=== PATIENT | female | born 1955 | race Caucasian/White ===

== ENCOUNTER 2021-12-10 09:22 | Outpatient (CLI) | payer MEDICARE, BC, SELFPAY ==
[2021-12-10 14:13] LABS: Basophils Percent Auto 0.9 % (0.0-3.0); Eosinophils Percent Auto 7.3 % (0.0-7.0); Hematocrit 44.1 % (33.0-51.0); Hemoglobin* 14.4 gm/dL (12.0-16.0); Lymphocytes Percent Auto 38.1 % (20-44); Mean Corpuscular HGB Conc 33 gm/dL (32-36); Mean Corpuscular Hemoglobin 32 pg (26-34); Mean Corpuscular Volume 98 fL (80-100); Monocytes Percent Auto 9.1 % (0.0-11.0); Neutrophils Percent Auto 44.6 % (42.0-72.0); Platelet Count* 236 K/uL (140-440); RDW Coefficient of Variation % 12.1 % (11.5-15.5); White Blood Count* 3.41 K/uL (4.50-11.00)
[2021-12-10 14:17] LABS: Slide Review Reflex No
[2021-12-10 14:24] LABS: Cholesterol* 232 mg/dL (90-199); Glucose* 94 mg/dL (60-115); Triglycerides* 68 mg/dL (40-149)
[2021-12-10 14:25] LABS: HDL Cholesterol* 83 mg/dL (>=50); LDL Cholesterol Calculated 135 mg/dL (<100)
== END 2021-12-10 09:23 | disposition home or self-care (01) ==
LOC: FBOREF 09:22
PROVIDERS: PCP Family Medicine; Visit Provider Nurse Practitioner Family
DX: Z00.00 Encounter for general adult medical examination without abnormal findings (principal); Z13.0 Encounter for screening for diseases of the blood and blood-forming organs and certain disorders involving the immune mechanism; Z13.1 Encounter for screening for diabetes mellitus; Z13.6 Encounter for screening for cardiovascular disorders
CPT/HCPCS: 80061; 82947; 85025

== ENCOUNTER 2021-12-12 14:52 | Outpatient (CLI) | payer MEDICARE, BC, SELFPAY ==
--- NOTE | 2021-12-12 15:00 | CRLHL7_ITS ---
For Patients: As a result of the Century Cures Act, medical imaging exams and procedure reports are released immediately into your electronic medical record. You may view this report before your referring provider. If you have questions, please contact your health care provider. DXA BONE MINERAL DENSITY STUDY Reason for exam: Screening. Current height (in): 69. Weight (lb): 143. Menopause age: 50. Ethnicity: White. 1. Have you had a previous hip or vertebral fracture? No. 2. Have you had any fractures during your adult life which did not result from significant trauma (e.g., auto accident)? No. 3. Did either of your parents have a hip fracture? No. 4. Do you smoke? No. 5. Have you ever taken Glucocorticoids? No. 6. Do you have rheumatoid arthritis? No. 7. Do you have secondary osteoporosis? No. 8. Do you drink 3 or more alcoholic drinks per day? No. 9. Are you being treated for osteoporosis? No. 10. Have you ever taken any of the following medications: Actonel, Evista, Fosamax, Miacalcin, Reclast, Boniva, Forteo, HRT (i.e., estrogen/hormone therapy), Protelos, Prolia, Vitamin D, Calcium, other ??? please specify. ANSWER: Yes, vitamin D and calcium. 11. Do you have any of the following medical conditions: Anorexia or bulimia, asthma or emphysema, end stage renal disease, hyperparathyroidism, any seizure disorders, cancer, inflammatory bowel diseases, hysterectomy, other ??? please specify. ANSWER: Yes, osteoarthritis. 12. What was your maximum height (inches)? 69. 13. Do you perform weight bearing exercise regularly? Yes. 14. Do you regularly consume dairy products? Yes. 15. Do you drink caffeinated beverages? Yes. If female: 16. At what age did your period start? 13. 17. Are you premenopausal? No. 18. How many full-term pregnancies have you had? 0. 19. Have you ever missed your period for more than 6 months in a row (not including or menopause)? No. TECHNIQUE: Bone mineral density study was performed using the [employer]. FINDINGS: The results of the study expressed as bone mineral density (BMD) are as follows: Lumbar spine L1 to L4: BMD: 0.815 g/cm2. T-score: -2.1. Z-score: -0.2 Neck Left: BMD: 0.651 g/cm2. T-score: -1.8. Z-score: -0.2 Right: BMD: 0.773 g/cm2. T-score: -0.7. Z-score: 0.9 Total Left: BMD: 0.662 g/cm2. T-score: -2.3. Z-score: -1.0 Right: BMD: 0.780 g/cm2. T-score: -1.3. Z-score: 0.0 IMPRESSION: Osteopenia. FRAX 10-year Fracture Risk Major Osteoporotic Fracture: 9.0% Hip Fracture: 1.3% Reported Risk Factors: [place] () Neck BMD=0.651, BMI=21.1 Stephen Gomez M.D. Diagnostic Radiologist [email or web address] KEYA/bud farrell/Dictated by: Stephen Gomez MD @ 12/13/2021 8:19:00 AM (Electronically Signed)
== END 2021-12-12 14:53 | disposition home or self-care (01) ==
LOC: RAD 14:53
PROVIDERS: PCP Nurse Practitioner Family; Visit Provider Nurse Practitioner Family
DX: Z13.820 Encounter for screening for osteoporosis (principal); M85.89 Other specified disorders of bone density and structure, multiple sites; Z78.0 Asymptomatic menopausal state
CPT/HCPCS: 77080

== ENCOUNTER 2022-05-02 12:52 | Outpatient (CLI) | payer MEDICARE, BC, SELFPAY ==
--- NOTE | 2022-05-02 13:00 | CRLHL7_ITS ---
For Patients: As a result of the Century Cures Act, medical imaging exams and procedure reports are released immediately into your electronic medical record. You may view this report before your referring provider. If you have questions, please contact your health care provider. BILATERAL SCREENING MAMMOGRAM WITH COMPUTER-AIDED DETECTION AND TOMOSYNTHESIS TECHNIQUE: CC and MLO views were obtained. These mammographic images have been obtained using full-field digital technique. These mammographic images were interpreted with the benefit of computer-aided detection. Breast Tomosynthesis was used in this interpretation. COMPARISON FILM: 05/01/21, 04/30/20, 04/12/19. FINDINGS: The breasts are heterogeneously dense, which may obscure small masses IMPRESSION: There is no radiographic evidence for malignancy. ASSESSMENT: BI-RADS Category 1: Negative RECOMMENDATION: Routine screening mammogram in 1 year. A lay language report of this examination will be provided to the patient. Laine Conway M.D. Diagnostic/Breast Radiologist [email or web address] HARDY/Dictated by: Laine Conway MD @ 05/05/2022 8:19:00 AM (Electronically Signed)
== END 2022-05-02 12:53 | disposition home or self-care (01) ==
LOC: MAMMO 12:54
PROVIDERS: PCP Nurse Practitioner Family; Visit Provider Nurse Practitioner Family
DX: Z12.31 Encounter for screening mammogram for malignant neoplasm of breast (principal); R92.2 Inconclusive mammogram
CPT/HCPCS: 77063; 77067

== ENCOUNTER 2022-05-28 08:40 | Outpatient (CLI) | payer MEDICARE, BC, SELFPAY | END 2022-05-28 08:41 | disposition home or self-care (01) | LOC: NFLDREF 05-30 15:33 | PROVIDERS: PCP Nurse Practitioner Family; Referring Provider Nurse Practitioner Family; Visit Provider Nurse Practitioner Family | DX: D72.819 Decreased white blood cell count, unspecified (principal) | CPT/HCPCS: 85025 ==

== ENCOUNTER 2022-12-09 15:03 | Outpatient (CLI) | payer MEDICARE, BC, SELFPAY | END 2022-12-09 15:04 | disposition home or self-care (01) | PROVIDERS: PCP Nurse Practitioner Family; Visit Provider Nurse Practitioner Family | DX: Z00.00 Encounter for general adult medical examination without abnormal findings (principal); Z13.1 Encounter for screening for diabetes mellitus; Z13.6 Encounter for screening for cardiovascular disorders; Z78.0 Asymptomatic menopausal state; Z83.2 Family history of diseases of the blood and blood-forming organs and certain disorders involving the immune mechanism | CPT/HCPCS: 80061; 85025 ==

== ENCOUNTER 2023-05-04 12:30 | Outpatient (CLI) | payer MEDICARE, SELFPAY ==
--- NOTE | 2023-05-04 13:00 | MM_ITS ---
Patient: LUIS ALBERTO RICHARD Facility:?[facility] Patient ID:?[id number] Site Patient ID:?[id number]. Site :?[id number] Study:?XRay-Breast Bilateral 3D W/CAD-05/04/2023 12:53:55 PM Ordering Physician:?Lindsay Israel Final Report: BILATERAL SCREENING MAMMOGRAM WITH COMPUTER-AIDED DETECTION AND TOMOSYNTHESIS TECHNIQUE: CC and MLO views were obtained. These mammographic images have been obtained using full-field digital technique. These mammographic images were interpreted with the benefit of computer-aided detection. Breast tomosynthesis was used in this interpretation. COMPARISON FILM: 05/02/22, 05/01/21, 04/30/20. FINDINGS: The breasts are heterogeneously dense, which may obscure small masses. IMPRESSION: There is no radiographic evidence for malignancy. ASSESSMENT: BI-RADS Category 1: Negative RECOMMENDATION: Routine screening mammogram in 1 year. A lay language report of this examination will be provided to the patient. JUAN PABLO WAKEFIELD M.D. Diagnostic Radiologist [email or web address] KEYA/amber D& Transcribed: 6:[address]/Dictated by: Juan Pablo Wakefield MD @ 05/14/2023 12:24:00 PM Signed by:Dora Wakefield MD @05/14/2023 8:24:23 PM (Electronic Signature)
== END 2023-05-04 12:31 | disposition home or self-care (01) ==
LOC: MAMMO 12:31
PROVIDERS: PCP Nurse Practitioner Family; Visit Provider Nurse Practitioner Family
DX: Z12.31 Encounter for screening mammogram for malignant neoplasm of breast (principal); R92.2 Inconclusive mammogram
CPT/HCPCS: 77063; 77067

== ENCOUNTER 2023-09-23 07:55 | Emergency (ER) | payer MEDICARE, SELFPAY ==
[2023-09-23] VITALS (8 sets, daily range): BP systolic 129–130; BP diastolic 83–91; PULSE 59–95; RESP 18; TEMP 36.2; O2SAT 94–100; BMI 21.4
--- NOTE | 2023-09-23 08:34 | CRLHL7_ITS ---
For Patients: As a result of the Century Cures Act, medical imaging exams and procedure reports are released immediately into your electronic medical record. You may view this report before your referring provider. If you have questions, please contact your health care provider. INDICATION: COVID +, NAUSEA, DIFFUSE ABD PAIN. TECHNIQUE: CT abdomen and pelvis acquired with 71 cc Omnipaque 350 IV contrast. COMPARISON: None. FINDINGS: Lower chest: Fine detail evaluation of the lung parenchyma is limited by respiratory motion artifact. Bibasilar subsegmental atelectasis. Liver: Unremarkable. Normal in size and attenuation. No suspicious masses. Gallbladder and bile ducts: Unremarkable. No stones or inflammation. No biliary dilatation. Pancreas: Unremarkable. No mass or inflammation. Spleen: Unremarkable. Normal in size. No masses. Adrenal glands: Unremarkable. No nodules. Kidneys: Unremarkable. No suspicious masses, stones, or hydronephrosis. GI tract: Rectosigmoid bowel suture line. There is diverticulosis of the residual sigmoid colon and left hemicolon without evidence of acute diverticulitis. No evidence of a bowel obstruction. Vasculature: Abdominal aorta is relatively tortuous in the upper-mid abdomen, but is normal in caliber. Mesenteric arteries are patent. Lymph nodes: No lymphadenopathy. Peritoneum/Abdominal Wall: Small volume pelvic free fluid Pelvis: Unremarkable. Bones: Unremarkable for age. IMPRESSION: No evident acute abnormalities in the abdomen or pelvis. Please note that all CT scans at this facility use dose modulation, iterative reconstruction, and/or weight-based dosing when appropriate to reduce radiation dose to as low as reasonably achievable. Dictated by Faustino Brooks MD @ 09/23/2023 10:34:53 AM (Electronically Signed)
--- NOTE | 2023-09-23 08:36 | ED_ITS ---
HPI - General Adult General Date Seen: 09/23/23 Chief complaint: Dizziness/Vertigo Stated complaint: Dizzy, vomiting Time Seen by Provider: 09/23/23 07:57 Source: patient Mode of arrival: ambulatory Limitations: no limitations History of Present Illness HPI narrative: Patient is a 68-year-old female presenting to emergency department for nausea, vomiting, dizziness. She states she was on a cruise then returned on Thursday and she was feeling sick starting Thursday but then started having the worsening nausea and dizziness yesterday morning when she woke up. States all day she was having nausea and would feel dizzy whenever she gets up to move around. States her head feels off but has a hard time describing it. She has tried sublingual Zofran at home without improvement in her symptoms. The states she has had symptoms like this in the past when her diverticulitis would act up this not had any size similar symptoms since her sigmoidectomy about 6 or 7 years ago. Is not aware of anyone else that was sick that she went on the trip with does note 1 the ladies they met on the cruise was feeling under the weather on the final day. She denies fevers, chills, headache, vision changes, days chest pain, shortness of breath, abdominal pain, diarrhea, constipation, dysuria. She states her whole body feels weak and fatigued. Has not had much p.o. intake in the past day. Symptoms are not improving so she came to be evaluated. Related Data Home Medications ?Medication ?Instructions ?Recorded ?Confirmed calcium citrate 200 mg 1 tab PO DAILY 11/14/21 07/21/23 calcium-vitamin D3 3.125 mcg (125 unit) tablet olopatadine 0.2 % eye drops 1 drp ophthalmic (eye) .Daily as 11/14/21 07/21/23 needed PRN omega-3 fatty acids 1,000 mg 1,000 mg PO QDAY 11/14/21 07/21/23 capsule polyethylene glycol 3350 17 g PO DAILY 11/14/21 07/21/23 gram/dose oral powder ondansetron HCl 4 mg tablet 4 mg PO PRN 12/05/21 07/21/23 red yeast rice 600 mg capsule 1,800 mg PO DAILY 12/09/22 07/21/23 coenzyme Q10 100 mg capsule 100 mg PO DAILY 07/21/23 07/21/23 fluticasone propionate 50 2 spray intranasal QDAY 07/21/23 07/21/23 mcg/actuation nasal spray,suspension (Flonase Allergy Relief) Allergies Allergy/AdvReac Type Severity Reaction Status Date / Time ciprofloxacin Allergy Verified 09/23/23 10:19 oxycodone Allergy Verified 09/23/23 10:19 Penicillins Allergy Verified 09/23/23 10:19 propoxyphene Allergy Verified 09/23/23 10:19 Review of Systems Status of ROS: Reports: 10 or more systems reviewed and unremarkable except as noted in History and below [facility] Medical History Postmenopausal status (10/25/10) ?Z78.0 - Asymptomatic menopausal state (ICD-10) History of diverticulitis ?Z87.19 - Personal history of other diseases of the digestive system (ICD-10) History of colonic polyps (10/05/13) ?Z86.010 - Personal history of colonic polyps (ICD-10) Surgical History History of D&C ?Z98.890 - Other specified postprocedural states (ICD-10) Status post tonsillectomy ?Z90.89 - Acquired absence of other organs (ICD-10) 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 Alcohol, socially. Non-smoker. No illicit drug use. Exercise formally. What is your current living situation?: I presently have a place to live Problems where you live: no known problems In the past 12 months, utilities in danger of being shut off: no In past 12 months, lack of transportation kept you from medical appts, meetings, work, or getting things needed for daily living: no In the past 12 mos, have been you worried that your food would run out before you had money to buy more?: never true In the past 12 mos, the food you bought just didn't last and you didn't have money to buy more?: never true Smoking Status: Never smoker How often does anyone, including family, friends and others, physically hurt you : never How often does anyone, including family, friends and others, insult or talk down to you: never How often does anyone, including family, friends and others, threaten you with harm: never How often does anyone, including family, friends and others, scream or curse at you: never Little interest or pleasure in doing things: not at all Feeling down, depressed, or hopeless: not at all Exam Narrative: Exam Narrative: Const: Well-nourished, Well-developed, in moderate distress Eyes: PERRL, no conjunctival injection, and symmetrical lids HENT: Atraumatic external nose and ears. Moist mucous membranes. Neck: Symmetric, trachea midline, No thyromegaly. CVS: RRR, No murmurs or gallops. Peripheral pulses 2+ and equal in all extremities RESP: Unlabored respiratory effort. Clear to auscultation bilaterally. GI: Nontender/Nondistended, No rebound or guarding. MSK:Extremities w/o deformity, Normal Active ROM Skin: Warm, Dry. No rashes or lesions. Neuro: Normal Muscle tone, No focal neurological deficits. Psych: Awake, Alert, & Oriented x3. Appropriate mood and affect. Const: Vital Signs, click to edit/add: Vital Signs - 24 hr 09/23/23 08:21 09/23/23 08:27 09/23/23 08:30 Temperature 97.1 F L Pulse Rate 68 71 Pulse Rate [Pulse Oximeter] 69 Respiratory Rate 18 Blood Pressure Blood Pressure [Ri ght Upper Arm] 129/83 Pulse Oximetry 98 94 98 Oxygen Delivery Me thod Room Air 09/23/23 08:45 09/23/23 09:00 09/23/23 09:09 Temperature Pulse Rate 59 L 67 95 Pulse Rate [Pulse Oximeter] Respiratory Rate Blood Pressure 130/91 H Blood Pressure [Ri ght Upper Arm] Pulse Oximetry 98 98 99 Oxygen Delivery Me thod 09/23/23 09:15 09/23/23 09:30 Temperature Pulse Rate 83 75 Pulse Rate [Pulse Oximeter] Respiratory Rate Blood Pressure Blood Pressure [Ri ght Upper Arm] Pulse Oximetry 100 98 Oxygen Delivery Me thod Course Vital Signs Vital signs: Initial Vital Signs Temperature 97.1 F L 09/23/23 08:21 Temperature Source Temporal Artery Scan 09/23/23 08:21 Pulse Rate 69 09/23/23 08:21 Respiratory Rate 18 09/23/23 08:21 Blood Pressure 129/83 09/23/23 08:21 Blood Pressure Mean 98 09/23/23 08:21 Pulse Oximetry 98 09/23/23 08:21 Oxygen Delivery Method Room Air 09/23/23 08:21 Vital Signs Temperature 97.1 F L 09/23/23 08:21 Pulse Rate 69 09/23/23 08:21 Respiratory Rate 18 09/23/23 08:21 Blood Pressure 129/83 09/23/23 08:21 Pulse Oximetry 98 09/23/23 08:21 Oxygen Delivery Method Room Air 09/23/23 08:21 Temperature 97.1 F L 09/23/23 08:21 Pulse Rate 75 09/23/23 09:30 Respiratory Rate 18 09/23/23 08:21 Blood Pressure 130/91 H 09/23/23 09:09 Pulse Oximetry 98 09/23/23 09:30 Oxygen Delivery Method Room Air 09/23/23 08:21 Medications Administered Medications: Discontinued Medications Generic Name Dose Route Start Last Admin Trade Name Freq PRN Reason Stop Dose Admin Diphenhydramine HCl 25 mg 09/23/23 08:34 09/23/23 09:15 Diphenhydramine 50 Mg/Ml Inj IVP 09/23/23 08:35 25 mg ONCE ONE Administration Lactated Ringer's 1,000 mls @ 1,000 mls/hr 09/23/23 08:34 09/23/23 09:15 Lactated Ringers 1000 Ml IV 09/23/23 09:33 1,000 mls/hr .Q1H ONE Administration Metoclopramide HCl 10 mg 09/23/23 08:34 09/23/23 09:15 Metoclopramide Hcl 5 Mg/Ml Inj IVP 09/23/23 08:35 10 mg ONCE ONE Administration Medical Decision Making MDM Narrative Medical decision making narrative: Patient is a 68-year-old female presenting for nausea, vomiting, dizziness. The differential diagnosis of vertigo is broad and includes common etiologies such as menieres disease, labyrinthitis, benign positional vertigo, otitis media, etc. More serious etiologies considered include central etiologies such as tumor, intracerebral bleed, dissection, ischemic cerebral vascular accident. Considering symptoms recur with movement this seems most likely did to be a peripheral cause the dizziness could also be some dehydration related as she has been vomiting has low p.o. intake. The nausea and vomiting could be from a gastroenteritis but consider history will do CT scan to look for any other causes. Differential includes SBO, his pancreatitis, gallbladder disease. Lactated Ringer's given for dehydration along with Reglan and Benadryl for her nausea. CBC, CMP, COVID/flu/RSV, urinalysis, lipase all ordered. She is COVID positive and this is likely the cause of all of her symptoms. Her white blood cell count is slightly low at 3.32 which is consistent with her viral infection. Rest of CBC, CMP, urinalysis showed no concerning abnormalities. CT scan the abdomen pelvis reviewed by myself and the radiologist shows no concerning findings. The symptoms are improved with the Reglan. She is comfortable at this time for discharge. She is out of the window for Paxlovid. Will be discharged. She prefers the Reglan pill over Zofran oral disintegrating at this time. Lab Data Labs: Lab Results 09/23/23 09/23/23 Range/Units 09:09 10:22 WBC 3.32 L (4.50-11.00) K/uL RBC 4.41 (4.00-5.20) m/uL Hgb 13.7 (12.0-16.0) gm/dL Hct 42.4 (33.0-51.0) % MCV 96 (80-100) fL MCH 31 (26-34) pg MCHC 32 (32-36) gm/dL RDW Coeff of Elissa 12.2 (11.5-15.5) % Plt Count 150 (140-440) K/uL Neut % (Auto) 66.3 (42.0-72.0) % Lymph % (Auto) 25.0 (20-44) % [place] % (Auto) 7.2 (0.0-11.0) % Eos % (Auto) 1.5 (0.0-7.0) % Baso % (Auto) 0.0 (0.0-3.0) % Neut # (Auto) 2.20 (1.7-7.0) K/uL Lymph # (Auto) 0.80 L (0.90-2.90) K/uL [place] # (Auto) 0.20 (0.00-0.90) K/UL Eos # (Auto) 0.00 (0.00-0.50) K/uL Baso # (Auto) 0.00 (0.00-0.30) K/uL Abs Immat Gran (auto) 0.00 (0.00-0.30) K/uL Imm/Tot Granulo (auto) 0.0 % Sodium 140 (135-149) mmol/L Potassium 3.6 (3.6-5.1) mmol/L Chloride 104 (96-114) mmol/L Carbon Dioxide 29 (20-32) mmol/L Anion Gap 7 (7-15) mEq/L BUN 20 (7-30) mg/dL Creatinine 0.7 (0.5-1.5) mg/dL Estimated Creat Clear 55.91 Estimated GFR 94 ml/min Glucose 122 H (60-115) mg/dL Calcium 9.7 (8.4-10.6) mg/dL Total Bilirubin 0.6 (0.1-1.5) mg/dL AST 35 (12-35) U/L ALT 16 (4-35) U/L Alkaline Phosphatase 70 (40-150) U/L Total Protein 7.1 (6.0-8.3) g/dL Albumin 4.5 (3.3-5.0) g/dL Lipase 66 (23-300) U/L Urine Color Yellow (Yellow) Urine Appearance Clear (Clear) Urine pH 5.5 (5.0-8.5) Ur Specific Badger >= 1.030 (1.000-1.030) Urine Protein Negative (Negative) Urine Glucose (UA) Negative (Negative) Urine Ketones 3+ A (Negative) Urine Blood Trace-intact A (Negative) Urine Nitrite Negative (Negative) Urine Bilirubin Negative (Negative) Urine Urobilinogen 0.2 (0.2-1.0) Ur Leukocyte Esterase Negative (Negative) Urine RBC 0-2 (0-2) Urine WBC 0-2 (0-5) Ur Squamous Epith Cells Many A (None-Few) Urine Bacteria None (None) SARS-CoV-2 (PCR) POSITIVE SARS-CoV-2 A (Negative) Influenza Type A (PCR) Negative PCR FLU A (Negative) Influenza Type B (PCR) Negative PCR FLU B (Negative) RSV (PCR) Negative PCR RSV (Negative) Imaging Data CT scan abdomen pelvis: Attestation: I have reviewed the pertinent imaging results. Radiologist's impression: No evident acute abnormalities in the abdomen or pelvis. Please note that all CT scans at this facility use dose modulation, iterative reconstruction, and/or weight-based dosing when appropriate to reduce radiation dose to as low as reasonably achievable. Dictated by Faustino Brooks MD @ 09/23/2023 10:34:53 AM Discharge Plan Discharge Clinical Impression: COVID Patient Disposition: Home, Self-Care Condition: Improved Instructions: COVID-19 (Coronavirus Disease 2019) (ED) Additional Instructions: Use the Reglan as needed for nausea. Make sure to take it since she started feeling nauseated see do not throat back up. If he gets jittery sensation with the Reglan try a 25 mg Benadryl. Return to emergency department for new or worsening symptoms. Prescriptions: No Action olopatadine 0.2 % drops 1 drp ophthalmic (eye) .Daily as needed PRN calcium citrate-vitamin D3 200 mg-3.125 mcg (125 unit) tablet 1 tab PO DAILY polyethylene glycol 3350 17 gram/dose powder PO DAILY omega-3 fatty acids 1,000 mg capsule 1,000 mg PO QDAY ondansetron HCl 4 mg tablet 4 mg PO PRN red yeast rice 600 mg capsule 1,800 mg PO DAILY coenzyme Q10 100 mg capsule 100 mg PO DAILY fluticasone propionate [Flonase Allergy Relief] 50 mcg/actuation spray,suspension 2 spray intranasal QDAY Rx Instructions: administer into each nostril Follow Up/Referrals: Lindsay Israel, [employer] PICKER, [employer]ER WAXER OPERATOR [Primary Care Provider] - Stand Alone [facility]: [facility] Info Inst[facility]
[2023-09-23] MEDS: diphenhydrAMINE 50 MG/ML inj 25 MG IVP (09:15)
[2023-09-23] MEDS: METOCLOPRAMIDE HCL 5 MG/ML INJ 10 MG IVP (09:15)
[2023-09-23] MEDS: LACTATED RINGERS 1000 ML 1,000 ML IV (09:15)
[2023-09-23 09:23] LABS: Eosinophils Percent Auto 1.5 % (0.0-7.0); Hematocrit 42.4 % (33.0-51.0); Hemoglobin* 13.7 gm/dL (12.0-16.0); Mean Corpuscular HGB Conc 32 gm/dL (32-36); Mean Corpuscular Hemoglobin 31 pg (26-34); Mean Corpuscular Volume 96 fL (80-100); Monocytes Percent Auto 7.2 % (0.0-11.0); Neutrophils Percent Auto 66.3 % (42.0-72.0); Platelet Count* 150 K/uL (140-440); RDW Coefficient of Variation % 12.2 % (11.5-15.5); Red Blood Count 4.41 m/uL (4.00-5.20); White Blood Count* 3.32 K/uL (4.50-11.00)
[2023-09-23 09:40] LABS: Slide Review Reflex No
[2023-09-23 09:41] LABS: Albumin* 4.5 g/dL (3.3-5.0); Chloride* 104 mmol/L (96-114); Sodium* 140 mmol/L (135-149)
[2023-09-23 09:42] LABS: Potassium* 3.6 mmol/L (3.6-5.1)
[2023-09-23 09:44] LABS: Alanine Aminotransferase* 16 U/L (4-35); Alkaline Phosphatase* 70 U/L (40-150); Anion Gap 7 mEq/L (7-15); Aspartate Amino Transferase* 35 U/L (12-35); Bilirubin Total* 0.6 mg/dL (0.1-1.5); Blood Urea Nitrogen* 20 mg/dL (7-30); Carbon Dioxide* 29 mmol/L (20-32); Creatinine* 0.7 mg/dL (0.5-1.5); Est. Creatinine Clearance* 55.91; Estimated Glomerular Filt Rate 94 ml/min; Glucose* 122 mg/dL (60-115); Lipase* 66 U/L (23-300); Total Protein* 7.1 g/dL (6.0-8.3)
[2023-09-23 09:45] LABS: Calcium* 9.7 mg/dL (8.4-10.6)
[2023-09-23 10:02] LABS: PCR FLU A Negative PCR FLU A (Negative); PCR FLU B Negative PCR FLU B (Negative); PCR RSV Negative PCR RSV (Negative); SARS PCR* POSITIVE SARS-CoV-2 (Negative)
[2023-09-23 10:27] LABS: Appearance Urine Clear (Clear); Bilirubin Urine Negative (Negative); Blood Urine Trace-intact (Negative); Color Urine Yellow (Yellow); Glucose Urine Negative (Negative); Ketones Urine 3+ (Negative); Leukocyte Esterase Urine Negative (Negative); Nitrite Urine Negative (Negative); Protein Urine Negative (Negative); Specific Gravity Urine >= 1.030 (1.000-1.030); Urobilinogen Urine 0.2 (0.2-1.0); pH Urine 5.5 (5.0-8.5)
[2023-09-23 10:35] LABS: RBC Urine 0-2 (0-2); Squamous Epithelial Cell Urine Many (None-Few); WBC Urine 0-2 (0-5)
== END 2023-09-23 11:19 | disposition home or self-care (01) ==
PROVIDERS: Emergency Provider Student in an Organized Health Care Education/Training Program; PCP Nurse Practitioner Family
DX: U07.1 COVID-19 (principal)
CPT/HCPCS: 36415; 74177; 80053; 81001; 83690; 85025; 87631; 96374; 96375; 99283; 99284; 99285; J1200; J2765; J7120; Q9967

== ENCOUNTER 2023-12-18 10:19 | Outpatient (CLI) | payer MEDICARE, SELFPAY | END 2023-12-18 10:20 | disposition home or self-care (01) | PROVIDERS: PCP Nurse Practitioner Family; Visit Provider Nurse Practitioner Family | DX: Z00.00 Encounter for general adult medical examination without abnormal findings (principal); Z13.6 Encounter for screening for cardiovascular disorders | CPT/HCPCS: 80053; 80061 ==

== ENCOUNTER 2024-07-08 08:37 | Outpatient (CLI) | payer MEDICARE, SELFPAY ==
--- NOTE | 2024-07-08 08:45 | CRLHL7_ITS ---
For Patients: As a result of the Century Cures Act, medical imaging exams and procedure reports are released immediately into your electronic medical record. You may view this report before your referring provider. If you have questions, please contact your health care provider. INDICATION: BILATERAL SCREENING MAMMOGRAM, ASYMPTOMATIC 69 Y/O FEMALE COMPARISON: 05/04/2023, 05/02/2022, 05/01/2021 TECHNIQUE: Digital mammogram in CC and MLO projections including computer-aided detection (CAD) and tomosynthesis. BREAST COMPOSITION: The breasts are heterogeneously dense, which may obscure small masses. FINDINGS: No suspicious findings. ASSESSMENT: BI-RADS 2 Benign RECOMMENDATION: Annual screening mammogram. A lay language report of this examination will be provided to the patient. Dictated by: Stephen Gomez MD @ 07/08/2024 12:41:21 (Electronically Signed)
== END 2024-07-08 08:38 | disposition home or self-care (01) ==
LOC: MAMMO 08:37
PROVIDERS: PCP Nurse Practitioner Family; Visit Provider Nurse Practitioner Family
DX: Z12.31 Encounter for screening mammogram for malignant neoplasm of breast (principal); R92.333 Mammographic heterogeneous density, bilateral breasts
CPT/HCPCS: 77063; 77067

== ENCOUNTER 2024-12-22 10:20 | Outpatient (CLI) | payer MEDICARE, SELFPAY | END 2024-12-22 10:21 | disposition home or self-care (01) | PROVIDERS: PCP Nurse Practitioner Family; Visit Provider Nurse Practitioner Family | DX: Z13.0 Encounter for screening for diseases of the blood and blood-forming organs and certain disorders involving the immune mechanism (principal); Z13.6 Encounter for screening for cardiovascular disorders; Z13.228 Encounter for screening for other metabolic disorders | CPT/HCPCS: 80053; 80061; 85025 ==

== ENCOUNTER 2024-12-29 09:20 | Outpatient (CLI) | payer MEDICARE, SELFPAY ==
--- NOTE | 2024-12-29 09:30 | CRLHL7_ITS ---
For Patients: As a result of the Century Cures Act, medical imaging exams and procedure reports are released immediately into your electronic medical record. You may view this report before your referring provider. If you have questions, please contact your health care provider. XR DXA Bone Mineral Density (BMD) Reason for exam: Osteopenia. Current height (in): 68.0. Weight (lb): 150.0. Menopause age: 50. Ethnicity: White. 1. Have you had a previous hip or vertebral fracture? No. 2. Have you had any fractures during your adult life which did not result from significant trauma (e.g., auto accident)? No. 3. Did either of your parents have a hip fracture? Yes. 4. Do you smoke? No. 5. Have you ever taken Glucocorticoids? No. 6. Do you have rheumatoid arthritis? No. 7. Do you have secondary osteoporosis? No. 8. Do you drink 3 or more alcoholic drinks per day? No. 9. Are you being treated for osteoporosis? No. 10. Have you ever taken any of the following medications: Actonel, Evista, Fosamax, Miacalcin, Reclast, Boniva, Forteo, HRT (i.e. estrogen/hormone therapy), Protelos, Prolia, Vitamin D, Calcium, other ??? please specify. ANSWER: Yes, vitamin D, calcium. 11. Do you have any of the following medical conditions: Anorexia or bulimia, asthma or emphysema, end stage renal disease, hyperparathyroidism, any seizure disorders, cancer, inflammatory bowel diseases, hysterectomy, other ??? please specify. ANSWER: Yes, osteoarthritis. 12. What was your maximum height (inches)? 69. 13. Do you perform weight bearing exercise regularly? Yes. 14. Do you regularly consume dairy products? Yes. 15. Do you drink caffeinated beverages? Yes. 16. At what age did your period start? 13. 17. Are you premenopausal? No. 18. How many full term pregnancies have you had? Zero. 19. Have you ever missed your period for more than 6 months in a row (not including or menopause)? No. TECHNIQUE: Bone mineral density study was performed using the [employer]. FINDINGS: The results of the study expressed as bone mineral density (BMD) are as follows: Lumbar spine L1 to L4: BMD: 0.823 g/cm2. T-score: -2.0. Z-score: 0.0. Neck Left: BMD: 0.693 g/cm2. T-score: -1.4. Z-score: 0.4. Right: BMD: 0.773 g/cm2. T-score: -0.7. Z-score: 1.1. Total Left: BMD: 0.694 g/cm2. T-score: -2.0. Z-score: -0.5. Right: BMD: 0.783 g/cm2. T-score: -1.3. Z-score: 0.2. IMPRESSION: Osteopenia. COMPARISON: Compared with scan of 12/12/2021, the bone mineral density has increased by 0.9 percent at the spine and increased by 2.5 percent at the hip. FRAX 10-year Fracture Risk Major Osteoporotic Fracture: 8.3 percent Hip Fracture: 1.4 percent Reported Risk Factors: [place] () Neck BMD=0.693, BMI=22.8, parental fracture Stephen Gomez M.D. Diagnostic Radiologist [email or web address] bM/Dictated by: Stephen Gomez MD @ 12/29/2024 10:51:00 AM (Electronically Signed)
== END 2024-12-29 09:21 | disposition home or self-care (01) ==
LOC: RAD 09:21
PROVIDERS: PCP Nurse Practitioner Family; Visit Provider Nurse Practitioner Family
DX: M85.89 Other specified disorders of bone density and structure, multiple sites (principal)
CPT/HCPCS: 77080